=== PATIENT | male | born 1985 | race Caucasian/White ===

== ENCOUNTER 2020-04-30 01:17 | Emergency (ER) | payer BC ==
--- NOTE | 2020-04-30 02:53 | EDM.PDOC ---
ED HPI GENERAL MEDICAL PROBLEM - General Chief Complaint: ENT Problem Stated Complaint: HEARING PROBLEMS WITH LEFT EAR Time Seen by Provider: 04/30/20 02:34 Source of Information: Reports: Patient History Limitations: Reports: No Limitations - History of Present Illness INITIAL COMMENTS - FREE TEXT/NARRATIVE: Mr. Rosas is a very pleasant 34-year-old gentleman who presents the ED with significantly decreased hearing in his right ear with pain extending to the right side of his throat, worse if he yawns or sneezes, since 19:00, when he fell onto his left ear while wakeboarding. He states that he fell hard. He states that his symptoms have improved since the time of his injury. He denies any other injury. No prior left ear injury. To his knowledge, he did not receive myringotomy tubes as a child. Here in the ED, the patient's initial BP is found to be mildly elevated at 145/97, otherwise, he is hemodynamically stable, afebrile, saturating 98% on room air. Other than his right ear injury, the patient denies recent fever, chills, sore throat, nasal or sinus congestion, cough, dyspnea, chest pain, palpitations, nausea, vomiting, constipation, diarrhea, abdominal pain, urinary symptoms, recent weight gain or weight loss, recent bloody bowel movements or black bowel movements, recent joint aches, headaches, or rashes. The patient's PCP is Dr. Sg Stratton. Left Ear Pain Score (Numeric/FACES): 7 - Related Data Allergies Allergy/AdvReac Type Severity Reaction Status Date / Time No Known Allergies Allergy Verified 04/30/20 01:27 Home Meds: Home Meds Ibuprofen 600 mg PO QID #30 tablet 08/04/14 [Rx] Past Medical History Gastrointestinal History: Reports: Pancreatitis Musculoskeletal History: Reports: Fracture (left 3rd finger) Social & Family History - Tobacco Use Smoking Status *Q: Former Smoker Years of Tobacco use: 9 Packs/Tins Daily: 1 Month/Year Tobacco Last Used: Quit 2009 - Caffeine Use Caffeine Use: Reports: Coffee - Alcohol Use Alcohol Use History: No - Recreational Drug Use Recreational Drug Use: No - Living Situation & Occupation Living situation: Reports: , with Spouse, with Family (2 kids) Occupation: Employed ([employer]) ED ROS ENT - Review of Systems Review Of Systems: Comprehensive ROS is negative, except as noted in HPI. ED EXAM, ENT - Physical Exam Exam: See Below Exam Limited By: No Limitations General Appearance: Alert, WD/WN, No Apparent Distress Eye Exam: Bilateral Eye: EOMI, Normal Inspection Ears: Other (The right external auditory canal and TM are normal in appearance. The left external auditory canal is normal in appearance, however, his left TM is very unusual in appearance, with a crinkly-appearing rim and a peach-colored center, rimmed by blood. There is no cone of light, although there is a reflection of a bulge, likely reflecting the malleus, in the center, however, I cannot determine if the bone is covered by tympanic membrane, or if it is exposed, indicating a perforated TM.) Nose: Normal Inspection, Normal Mucousa, No Blood Mouth/Throat: Normal Inspection, Normal Gums, Normal Lips, Normal Oropharynx, Normal Teeth Head: Atraumatic, Normocephalic Neck: Normal Inspection, Supple, Non-Tender, Full Range of Motion. No: Lymphadenopathy (L), Lymphadenopathy (R) Course - Vital Signs Last Recorded V/S: Last Vital Signs Temp 36.2 C 04/30/20 01:25 Pulse 66 04/30/20 01:25 Resp 16 04/30/20 01:25 BP 145/97 H 04/30/20 01:25 Pulse Ox 98 04/30/20 01:25 - Re-Assessments/Exams Free Text/Narrative Re-Assessment/Exam: 04/30/20 02:47 As above, the patient injured his left tympanic membrane when he fell while wakeboarding last evening. On examination, the patient's tympanic membrane is very unusual in appearance, including a ring of blood with a peach-colored center. I suspect that the tympanic membrane is simply bruised, however, given that my view of his TM is only two-dimensional, I cannot exclude a perforated TM. The patient will need to be evaluated by an ENT. I will refer him. In the meantime, he should avoid getting any water in the ear. Departure - Departure Time of Disposition: 02:50 Disposition: Home, Self-Care 01 Condition: Good Clinical Impression: Injury of tympanic membrane of left ear - Discharge Information *PRESCRIPTION DRUG MONITORING PROGRAM REVIEWED*: Not Applicable *COPY OF PRESCRIPTION DRUG MONITORING REPORT IN PATIENT PATRICIA: Not Applicable Referrals: Sg Castro MD [Primary Care Provider] - Chan Zhang MD [Ordering Only Provider] - Forms: ED Department Discharge Additional Instructions: You were seen in the emergency room after injuring your left ear when you fell while water boarding. On examination, your left tympanic membrane (eardrum) is very unusual in appearance. While it may simply be bruised, a perforation cannot be ruled out. We recommend that you contact the office of the ENT Dr. Chan Zhang first thing 05/02/2020, to make an appointment to be seen as soon as possible. Make sure that the metal alloy scientist knows that you are following up from the ER. In the meantime, it is very important that you not allow any water to get into your left ear. You should instill a soft earplug into your left ear whenever showering. You may take [id number] Tylenol or ibuprofen as needed for discomfort. If any other problems, please do not hesitate to return to the ER. Sepsis Event Note (ED) - Evaluation Sepsis Screening Result: No Definite Risk - Focused Exam Vital Signs: Vital Signs Temp Pulse Resp BP Pulse Ox 04/30/20 01:25 36.2 C 66 16 145/97 H 98
== END 2020-04-30 03:00 | disposition home or self-care (01) ==
LOC: JD.ED 01:17
DX: S09.302A Unspecified injury of left middle and inner ear, initial encounter (principal); Z87.891 Personal history of nicotine dependence; X58.XXXA Exposure to other specified factors, initial encounter
CPT/HCPCS: 99282